=== PATIENT | female | born 1990 | race Caucasian/White ===

== ENCOUNTER 2017-08-21 22:42 | Emergency (ER) | payer OTHER ==
[~2017-08-21] VITALS: Ht 172.7 cm; Wt 68.0 kg
[~2017-08-21 22:42] MED LIST: LEXAPRO10 M1 PO; LIDODERM1 EACH TOP; LORAZEPAM0.5 M1 PO; MIRENA1 EACH; NAPROSYN500 M1 PO; PROAIR HFA8.5 GM INH
[2017-08-21 22:44] VITALS: BP 104/69
--- NOTE | 2017-08-22 00:30 | ED INFLUENZA/URI COMPLAINT ---
History of Present Illness General Chief Complaint: General Adult Stated Complaint: "SINUS PRESSURE, STIFF NECK, N+V-D, DIZZY" Source: patient Exam Limitations: no limitations Vital Signs & Intake/Output Vital Signs & Intake/Output Vital Signs Date Time Temp Pulse Resp B/P B/P Pulse O2 O2 Flow FiO2 Mean Ox Delivery Rate 08/21 2244 96.1 90 20 104/69 98 ED Intake and Output 08/22 0000 08/21 1200 Intake Total Output Total Balance Patient 150 lb Weight Weight Reported by Patient Measurement Method Allergies Coded Allergies: magnesium (Mild, NAUSEA 03/27/17) Triage Note: PT HERE WITH C/O SINUS PAIN/PRESSURE AND NECK PAIN. PT REPROT SINUES STARTED A FEW DAYS AGO AND SHE TOOK SOME [facility]S. PT REPORTS THAT TODAT SHE WOKE UP WITH A "STIFF NECK" AND UNABLE TO MOVE IT. PT REPORTS SHE TOOK TYLENOL WITHOUT EFFECT. Triage Nurses Notes Reviewed? yes Onset: Gradual Duration: constant Timing: recent history Severity: moderate Severity Numbers: 5 : No Patient currently breastfeeds: No HPI: Patient is a 27-year-old female who presents emergency with concerns of a four- day history of nasal congestion and sinus pain however today when patient woke up with stiff and sore neck. Patient took [id number] medications without relief of symptoms denies any fever but does have chills. Denies any sore throat or pain. DOES have a cough Positive sick contacts at home similar symptoms (James Eller) Reconcile Medications Albuterol Sulfate (Proair Hfa) 90 MCG HFA.AER.AD 2 PUF INH AD PRN ASTHMA ( Reported) Azithromycin (Zithromax) 500 MG TABLET 1 TAB PO DAILY SINUSITIS Benzonatate (Tessalon Perle) 100 MG CAPSULE 1 CAP PO TID PRN COUGH Cyclobenzaprine HCl 10 MG TABLET 1 TAB PO QPM PRN MUSCLE RELAXOR Escitalopram Oxalate (Lexapro) 10 MG TABLET 1 TAB PO QPM MENTAL HEALTH ( Reported) Fluticasone Propionate (Flonase Allergy Relief) 50 MCG/ACTUATION SPRAY.SUSP 2 SPRAY MIRIAN DAILY CONGESTION Levonorgestrel (Mirena) 20 MCG/24 HOUR (5 YEARS) IUD CONTROL (Reported) Lidocaine (Lidoderm) 5 % ADH..PATCH 1 PAT TOP DAILY PRN pain may wear up to 12 hours Lorazepam 0.5 MG TABLET 1 TAB PO DAILY NEEDED PRN ANXIETY (Reported) Meloxicam (Mobic) 15 MG TABLET 1 TAB PO DAILY PRN PAIN (Margaux HURD,Rolando Aragon) Past History Travel History Traveled to [place] past 21 day No Medical History Any Pertinent Medical History? 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 No (James Eller) Review of Systems Review of Systems Constitutional: Reports: see HPI, chills. EENTM: Reports: see HPI, nasal congestion. Respiratory: Reports: see HPI, cough. Cardiovascular: Reports: no symptoms. GI: Reports: no symptoms. Genitourinary: Reports: no symptoms. Musculoskeletal: Reports: see HPI, neck pain. Skin: Reports: no symptoms. Neurological/Psychological: Reports: see HPI. Hematologic/Endocrine: Reports: no symptoms. Immunologic/Allergic: Reports: no symptoms. All Other Systems: Reviewed and Negative (James Eller) Physical Exam Physical Exam General Appearance: no apparent distress, alert, comfortable Head: atraumatic Eyes: Bilateral: normal appearance, PERRL, EOMI. Ears, Nose, Throat: moist mucous membrane, hearing grossly normal, Tympanic normal, pharynx normal, nasal congestion, nasal drainage, RIGHT FRONTAL POINT TENDERNESS Neck: limited range of motion, no midline tenderness Respiratory: normal breath sounds, chest non-tender, no respiratory distress Cardiovascular: regular rate/rhythm Gastrointestinal: normal bowel sounds, soft, non-tender Extremities: normal inspection Neurologic/Psych: no motor/sensory deficits, awake, alert, oriented x 3, normal gait, normal mood/affect Skin: intact, normal color, warm/dry Core Measures Sepsis Present: No Sepsis Focused Exam Completed? No (James Eller) Progress Differential Diagnosis: influenza, meningitis, neutropenia, otitis, pneumonia, pharyngitis, sinusitis Plan of Care: No concerns of meningitis at this time patient was afebrile nontoxic-appearing patient patient denies any mechanism of injury discussed with patient that if fever or worsening headache or neck pain occur to return to emergency room and she will comply patient will be treated for concerns of sinusitis. Initial ED EKG: none (James Eller) Departure Departure Disposition: HOME OR SELF CARE Condition: Stable Clinical Impression Primary Impression: Sinusitis Secondary Impressions: Neck pain Referrals: Kehinde HURD,Keturah Reich (PCP/Family) Additional Instructions: As discussed begin the prescription meloxicam for pain and inflammation, BEGIN THE prescription of azithromycin for the full course , TESSALON PERLES for cough and Flonase for congestion. Begin [id number] Sudafed for congestion. If no better in 2 days follow up with your primary care doctor. If symptoms worsen return to emergency room. Prescriptions waiting at [facility] Departure Forms: Customer Survey General Discharge Information Prescriptions: Current Visit Scripts Fluticasone Propionate (Flonase Allergy Relief) 2 SPRAY MIRIAN DAILY #1 BOT Meloxicam (Mobic) 1 TAB PO DAILY PRN PAIN #10 TAB Benzonatate (Tessalon Perle) 1 CAP PO TID PRN COUGH #15 CAP Azithromycin (Zithromax) 1 TAB PO DAILY #5 TAB Cyclobenzaprine HCl 1 TAB PO QPM PRN MUSCLE RELAXOR #5 TAB (James Eller) PA/MOTOR BIKE MECHANIC Co-Sign Statement Statement: ED Attending supervision documentation- [] I saw and evaluated the patient. I have also reviewed all the pertinent lab results and diagnostic results. I agree with the findings and the plan of care as documented in the PA's/MOTOR BIKE MECHANIC's documentation. [x] I have reviewed the ED Record and agree with the PA's/MOTOR BIKE MECHANIC's documentation. [] Additions or exceptions (if any) to the PAs/MOTOR BIKE MECHANIC's note and plan are summarized below: [] (Margaux HURD,Rolando Aragon)
[2017-08-22] MEDS ORDERED: FLONASE ALLERG9.9 ML NAS (00:33)
[2017-08-22] MEDS ORDERED: TESSALON PERLE100 M1 PO (00:33)
[2017-08-22] MEDS ORDERED: ZITHROMAX500 M2 PO (00:33)
[2017-08-22] MEDS ORDERED: MOBIC15 M1 PO (00:33)
[2017-08-22] MEDS ORDERED: CYCLOBENZAPRINE10 M1 PO (00:34)
== END 2017-08-22 00:44 ==
LOC: ERH 22:42
DX: J32.9 Chronic sinusitis, unspecified (principal); M54.2 Cervicalgia

== ENCOUNTER 2017-09-08 23:07 | Inpatient (IN) | payer OTHER ==
[~2017-09-08] VITALS: Ht 175.3 cm; Wt 68.0 kg
[~2017-09-08 23:07] MED LIST changes: +CYCLOBENZAPRINE10 M1 PO; +FLONASE ALLERG9.9 ML NAS; +MOBIC15 M1 PO; +TESSALON PERLE100 M1 PO; +ZITHROMAX500 M2 PO
--- NOTE | 2017-09-08 23:27 | ED PSYCHIATRIC COMPLAINT ---
History of Present Illness General Chief Complaint: Psychiatric Related Complaint Stated Complaint: FEELING SUICIDAL PER [place] [employer] Source: patient Exam Limitations: no limitations Vital Signs & Intake/Output Vital Signs & Intake/Output Vital Signs Date Time Temp Pulse Resp B/P B/P Pulse O2 O2 Flow FiO2 Mean Ox Delivery Rate 09/09 0852 97.9 71 20 99/66 100 Room Air 09/09 0618 98.1 86 16 103/74 98 Room Air 09/09 0200 20 09/08 2322 98.0 80 18 114/75 100 Room Air ED Intake and Output 09/09 0000 09/08 1200 Intake Total 0 Output Total Balance 0 Intake, Oral 0 Patient 150 lb Weight Weight Reported by Patient Measurement Method Allergies Coded Allergies: magnesium (Mild, NAUSEA 03/27/17) Reconcile Medications Albuterol Sulfate (Proair Hfa) 90 MCG HFA.AER.AD 2 PUF INH AD PRN ASTHMA ( Reported) Azithromycin (Zithromax) 500 MG TABLET 1 TAB PO DAILY SINUSITIS Benzonatate (Tessalon Perle) 100 MG CAPSULE 1 CAP PO TID PRN COUGH Cyclobenzaprine HCl 10 MG TABLET 1 TAB PO QPM PRN MUSCLE RELAXOR Escitalopram Oxalate (Lexapro) 10 MG TABLET 1 TAB PO QPM MENTAL HEALTH ( Reported) Fluticasone Propionate (Flonase Allergy Relief) 50 MCG/ACTUATION SPRAY.SUSP 2 SPRAY MIRIAN DAILY CONGESTION Levonorgestrel (Mirena) 20 MCG/24 HOUR (5 YEARS) IUD CONTROL (Reported) Lidocaine (Lidoderm) 5 % ADH..PATCH 1 PAT TOP DAILY PRN pain may wear up to 12 hours Lorazepam 0.5 MG TABLET 1 TAB PO DAILY NEEDED PRN ANXIETY (Reported) Meloxicam (Mobic) 15 MG TABLET 1 TAB PO DAILY PRN PAIN Triage Note: SEE NURSES NOTES Triage Nurses Notes Reviewed? yes Onset: Gradual Duration: week(s): Timing: recent history Severity: moderate : No Patient currently breastfeeds: No HPI: 27yo female with hx of depression, anxety, antisocial personality disorder presents emergency department for suicidal ideation. Patient states that earlier today she was texting the suicidal hotline and making suicidal statements. They sent police to her house based on these statements. Patient states she do not want to go to [employer] so she drove here instead. Patient states she has had suicidal ideation for over a month. She also endorses homicidal ideation which she relates to her. The social personality disorder. Patient is that she has thoughts about harming other people however thinks about other alternatives instead. Patient has been taking her psychiatric medication as prescribed. The patient denies having a suicide plan. She denies alcohol use, drug use, hallucinations. (Brenda Montenegro) Past History Travel History Traveled to [place] past 21 day No Medical History Any Pertinent Medical History? 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 No (Brenda Montenegro) Review of Systems Review of Systems Constitutional: Reports: no symptoms. EENTM: Reports: no symptoms. Respiratory: Reports: no symptoms. Cardiovascular: Reports: no symptoms. GI: Reports: no symptoms. Genitourinary: Reports: no symptoms. Musculoskeletal: Reports: no symptoms. Skin: Reports: no symptoms. Neurological/Psychological: Reports: see HPI. Hematologic/Endocrine: Reports: no symptoms. Immunologic/Allergic: Reports: no symptoms. All Other Systems: Reviewed and Negative (Brenda Montenegro) Physical Exam Physical Exam General Appearance: well developed/nourished, no apparent distress, alert, awake Head: atraumatic, normal appearance Eyes: Bilateral: normal appearance. Ears, Nose, Throat: hearing grossly normal Neck: normal inspection, supple, full range of motion Respiratory: no respiratory distress Extremities: normal range of motion Neurological/Psychiatric: awake, alert, normal mood/affect, calm Appearance/Memory/Insight: appropriate appearance, appropriate insight Behavoir/Eye Contact/Speech: cooperative Thoughts/Hallucinations: normal thought pattern, no apparent hallucination Skin: intact, normal color, warm/dry SAD PERSONS SAD PERSONS Response Value Depression/Hopelessness? yes 2 Single//? yes 1 Social Support? has no support 1 Total 4 SAD PERSONS Done? yes (Brenda Montenegro) Progress Differential Diagnosis: drug intoxication, drug overdose, drug withdrawal, suicidal ideation, depression Plan of Care: Orders Procedure Date/time Status Regular Diet 09/09 B Active ED CRISIS PSYCH CONSULT 09/09 075 Active Continuous Observation Monitor 09/09 324 Active Continuous Observation Monitor 09/08 2325 Active URINE 09/08 2325 Complete URINE DRUG SCREEN FOR ER ONLY 09/08 2325 Complete ETHANOL 09/08 2325 Complete COMPREHENSIVE METABOLIC PANEL 09/08 2325 Complete CBC WITHOUT DIFFERENTIAL 09/08 2325 Complete Current Medications Sig/Darrell Start time Last Medication Dose Stop Time Status Admin Escitalopram Oxalate 10 MG QPM 09/09 2100 UNVr (Lexapro) Albuterol Sulfate 2 PUF .[AD] PRN 09/09 004 UNVr (Ventolin) Laboratory Tests 09/09/17 0013: Urine Opiates Screen < 100, Methadone Screen 47, Barbiturate Screen < 60, Ur Phencyclidine Scrn < 6.00, Amphetamines Screen < 100, U Benzodiazepines Scrn < 85, Urine Cocaine Screen < 50, Urine Cannabis Screen < 5.00, Urine Test NEGATIVE 09/09/17 0010: Anion Gap 10, Estimated GFR > 60, BUN/Creatinine Ratio 15.7, Glucose 103 H, Calcium 9.5, Total Bilirubin 0.8, AST 28, ALT 25, Alkaline Phosphatase 49, Total Protein 7.3, Albumin 4.1, Globulin 3.2, Albumin/Globulin Ratio 1.3, CBC w Diff NO MAN DIFF REQ, RBC 4.40, MCV 87.5, MCH 30.0, MCHC 34.3, RDW 13.1, MPV 8.7, Gran % 61.4, Lymphocytes % 27.7, Monocytes % 7.9, Eosinophils % 2.5, Basophils % 0.5, Absolute Granulocytes 3.9, Absolute Lymphocytes 1.8, Absolute Monocytes 0.5 , Absolute Eosinophils 0.2, Absolute Basophils 0, Serum Alcohol < 10.0 The patient was signed out to Dr. Schuler pending labs and crisis evaluation and disposition. Hand-Off Endorsed To: Russel Schuler MD Endorsed Time: 010 Pending: consult (crisis), labs (Brenda Montenegro) Hand-Off Endorsed To: Kingston Bell DO Endorsed Time: 07 Pending: consult (Russel Schuler MD) Departure Departure Disposition: STILL A PATIENT Condition: Stable Clinical Impression Primary Impression: Suicidal ideation Referrals: Keturah Busby MD (PCP/Family) Departure Forms: Customer Survey General Discharge Information (Destinee ALVARADO,Brenda Harley) PA/RECORDER OF DEEDS Co-Sign Statement Statement: ED Attending supervision documentation- x I saw and evaluated the patient. I have also reviewed all the pertinent lab results and diagnostic results. I agree with the findings and the plan of care as documented in the PA's/RECORDER OF DEEDS's documentation. Personality disorder with SI, HI [] I have reviewed the ED Record and agree with the PA's/RECORDER OF DEEDS's documentation. [] Additions or exceptions (if any) to the PAs/RECORDER OF DEEDS's note and plan are summarized below: [] (Ganga HURD,Russel) Departure Comments 09/09/17 10 AM 27-year-old female. The patient was signed out to me by Dr. Schuler. Patient is pending disposition by crisis. (Kingston Bell DO)
[2017-09-09 00:30] LABS: ABSOLUTE BASOPHIL COUNT 0 /CUMM (0.0-0.2); ABSOLUTE EOSINOPHIL COUNT 0.2 /CUMM (0.0-0.7); ABSOLUTE GRANULOCYTE CT 3.9 /CUMM (1.4-6.5); ABSOLUTE LYMPH COUNT 1.8 /CUMM (1.2-3.4); ABSOLUTE MONOCYTE COUNT 0.5 /CUMM (0.10-0.60); BASOPHIL % 0.5 % (0.0-2.0); EOSINOPHIL % 2.5 % (0-5); GRANULOCYTE % 61.4 % (42.2-75.2); HEMATOCRIT 38.5 % (37-47); MEAN CORPUSCULAR HGB CONC 34.3 G/DL (33.0-37.0); MEAN CORPUSCULAR VOLUME 87.5 FL (81.0-99.0); MEAN PLATELET VOLUME 8.7 FL (7.4-10.4); PLATELET COUNT 262 /CUMM (130-400); RBC DISTRIBUTION WIDTH 13.1 % (11.5-14.5); WHITE BLOOD CELL COUNT 6.4 /CUMM (4.8-10.8)
--- NOTE | 2017-09-09 08:58 | ED PSY CRISIS COLLATERAL NOTE ---
Collateral Note Collateral Note Family/Inform/Joann Contacts: Crisis spoke to pt's boyfriend of six years, Alfonso Hernandez ([phone]). He states that the pt has had intense anxiety over the last month and has been depressed for years. She is currently in IOP @ [facility]. Today is the patient's 3rd visit to an ED in the last 2.5 years. Pt was hospitalized 1.5 years ago @ [facility] for SI. He states that when the pt gets "super depressed" she reaches out. He states she was texting the crisis/suicide hotline because she had a bad day. He is unaware of what he text them. Read to him the PEER from [facility] including how she reported to hotline that she took all of her ativan and her meds. Boyienricardo states she's had the bottle of ten Ativan since early August and believes there was only one left. The only other medication she has is for depression and it's due for a refill so there aren't many left. Per med reconcilation, the other med is lexapro. Boyfriend lives with patient and he believes that the hotline worker was looking out for the pt but overall it was an over reaction. He reports pt often has SI thoughts. He has not known her to ever have a suicide attempt. In regards to the comments she made in triage about hurting others, boyienricardo believes it is realated to trying to emotionally hurt others as she is guarded and does not have a lot of friends. He offers that approximately 2.5 years ago the pt had vertigo and some seizure syndrome. He states that after a lot of specailists no one was able to give her a formal diagnosis. She has been seizure free for 1 year but still has dizzy spells. These medical issues led to them having high medical bills which led to financial stress. Pt also resigned from her job after taking a leave of absense to do IOP at [facility]. This also adds stress to the household. Krisienricardo does not believe inpatient would be helpful to the pt at this time as her last experience at [facility] was so traumatic. He states he thinks the patient is safe to come home. He is not afraid for his safety or her safety. He thinks she can be safe at home and with IOP services at [facility].
--- NOTE | 2017-09-09 09:33 | ED PSYCH CRISIS CONSULTATION ---
Crisis Consult Basic Assessment Date of Consult: 09/09/17 Responsible Person/Accompanied By: self Insurance Authorization: Insurance #1: Insurance name: STUART Melara C&A Phone number: Policy number: [id number] Group number: Authorization number: ED Provider: Patient's ED Provider: Brenda Montenegro Primary Care Physician: Patient's PCP: Keturah Busby MD PCP's Current Psychiatrist: Provider @ [facility] Chief Complaint: Psychiatric Related Complaint Patient's Quote: "I've had depression for a few years" Present Illness: Pt is a 27 year old female self presnting to the ED on [place] [employer] PEER. Police followed pt to ED from [place]. Pt presents to ED last night after she was texting a crisis/suicide hotline. PEER indicates PD was called after pt text that she took all of her Ativan and meds. Pt refused to go to [place] and [facility] [place] [facility] allowed pt to drive her own car to [place] and they followed behind patient. Pt was seen by crisis this morning. Pt's utox is negative and BAL is zero. Pt states she was utilizing the crisis line as she had a terrible day yesterday. She states she took 4 of her Ativan (total of 2mg). Per ED CHRISTIANO Holden, Ativan may not have shown up in her utox if she the collection was close to when she took the Ativan. He informed this process description writer that Ativan will not show up in her urine for 6-8 hours after injestion. He suggested repeating the UDS. Pt states she did not take these 4 Ativan as a means to kill herself. She explained that she was very anxious yesterday because she was at [facility] filing for disability and higginbotham assistance. The pt states this was very stressful and when she got home, EMS was at her home because her roommate reportedly left his therapy session and the therapist was concerns and called for what sounds like a wellness check. Pt' s roommate was found and sent to [place] ED for psych eval. Pt notes these events were overwhelming for her so she took the Ativan to calm down and was texting the crisis hotline. Pt states she has chronic SI and denies any suicide attempts. Pt denies SI/HI at this time. Pt denies AH/VH. Pt is an active pt at [facility] in [place]. She was in the DBT IOP but the pt indicates she they changed the format from 2 therapy group and 1 skills group to 2 skills groups and 1 therapy group. Pt states she doesn't think the skills groups help learning skills to manage care home symptoms but they are helpful in an acute situations. Pt sees a prescriber 1x/month. She states they have had staff changes and are short prescribers. She was supposed to follow up in 2 weeks after the appt on 08/08 when she was 1st prescribed the Ativan. However her next scheduled appointment is 09/13/17. Over the last month, pt reports that her depression and anxiety have gotten worse. She has difficulty staying asleep at night- sometimes as nightmares about YPI. She reports decreased apetite with no noticeable weight loss. Pt took a leave of absense form her job to do IOP but recently resigned from her position. Pt does not believe there is a purpose to going inpatient stating that nothing will change and if she misses the the [facility] appointment on 09/13 she will have to wait even longer to see her regular provider. Pt wants to discharge home w/ follow up with [facility] IOP on 09/12/17 and med appointment on 09/13/17. Crisis spoke to therapist, Macrina, at [facility]. She confirms that the pt is an active pt at [facility]. She was in the DBT IOP but will be switching to the Symptom Managment IOP starting Tuesday. She states patient does have long standing depression with chronic SI and has self diagnosed herself with Antisocial Personality Disorder. She does not believe that the pt has antisocial personality disorder. Therapist thinks she is guarded around people based on her childhood which she did not disclose the details of. She does think the pt is hopeless. Of note, the pt was hospitalized at [place] 02/2016 for what [facility] states was a suicide attempt by overdose. It was reported to [facility] that pt locked herself in a room at home and wouldn't open the door and stated she took pills. It is unclear what pills she injested but there was a subsequent inpatient psych hospitalization follwing this event. She reports she is on the fence about the appropriate level of care for the patient. She consulted with [facility] Crisis and the Senior Ux Designer. She states they are now advocating for an admissions. The crisis team has spent approx 15 hours with pt this week alone. Pt is decompensating in their opinion. They noted that in their records from initial intake on 07/14/16 that pt reported two previous suicide attempts in the past by overdose. Pt also reported at the [facility] intake in response to a question about how would you respond to going to the ED if needed for eval "I would manipulate them to get my way out." Crisis consulted with Dr. Reis, financial consultant psychiatrist. Pt to be PEC'd for inpatient psych treatment due to reporting to suicide hotline she took all her ativan, has previous suicide attempts by overdose. Pt is hopeless and helpless believing nothing can help her. Of note, when patient was informed that she would be involuntarily committed to CPS, it was explained to her that she can file for probable cause. She requested to do so when she was admitted. Dr. Reis and legal director notified. Patient's Address: [address] [place] [address] Other Phone Number: Who Do You Live With? Significant Other (& Roommate) Family/Informants Interviewed: Spoke with boyfriend, Alfonso and [facility]. See seperate col. notes Allergies - Coded Allergies: magnesium (Mild, NAUSEA 03/27/17) Current Medications - Scheduled Medications Azithromycin (Zithromax) 500 MG TABLET 1 TAB PO DAILY SINUSITIS #5 TAB Prescribed by James Bruner on 08/22/17 Escitalopram Oxalate (Lexapro) 10 MG TABLET 1 TAB PO QPM MENTAL HEALTH #30 ( Reported) Entered as Reported by Kendal Rojas on 08/13/17 1506 Fluticasone Propionate (Flonase Allergy Relief) 50 MCG/ACTUATION SPRAY.SUSP 2 SPRAY MIRIAN DAILY CONGESTION #1 BOT Prescribed by James Bruner on 08/22/17 Scheduled PRN Medications Albuterol Sulfate (Proair Hfa) 90 MCG HFA.AER.AD 2 PUF INH AD PRN ASTHMA #9 ( Reported) Entered as Reported by Kendal Rojas on 08/13/17 1506 Benzonatate (Tessalon Perle) 100 MG CAPSULE 1 CAP PO TID PRN COUGH #15 CAP Prescribed by James Bruner on 08/22/17 Cyclobenzaprine HCl 10 MG TABLET 1 TAB PO QPM PRN MUSCLE RELAXOR #5 TAB Prescribed by James Bruner on 08/22/17 Lidocaine (Lidoderm) 5 % ADH..PATCH 1 PAT TOP DAILY PRN pain #30 PAT Prescribed by Sugar Lynch on 03/27/17 Lorazepam 0.5 MG TABLET 1 TAB PO DAILY NEEDED PRN ANXIETY #10 (Reported) Entered as Reported by Kendal Rojas on 08/13/17 1506 Meloxicam (Mobic) 15 MG TABLET 1 TAB PO DAILY PRN PAIN #10 TAB Prescribed by James Bruner on 08/22/17 Miscellaneous Medications Levonorgestrel (Mirena) 20 MCG/24 HOUR (5 YEARS) IUD CONTROL (Reported) Entered as Reported by Kendal Rojas on 08/13/17 1507 Laboratory Results: Laboratory Tests 09/09/17 0013: Urine Opiates Screen < 100, Methadone Screen 47, Barbiturate Screen < 60, Ur Phencyclidine Scrn < 6.00, Amphetamines Screen < 100, U Benzodiazepines Scrn < 85, Urine Cocaine Screen < 50, Urine Cannabis Screen < 5.00, Urine Test NEGATIVE 09/09/17 0010: Anion Gap 10, Estimated GFR > 60, BUN/Creatinine Ratio 15.7, Glucose 103 H, Calcium 9.5, Total Bilirubin 0.8, AST 28, ALT 25, Alkaline Phosphatase 49, Total Protein 7.3, Albumin 4.1, Globulin 3.2, Albumin/Globulin Ratio 1.3, CBC w Diff NO MAN DIFF REQ, RBC 4.40, MCV 87.5, MCH 30.0, MCHC 34.3, RDW 13.1, MPV 8.7, Gran % 61.4, Lymphocytes % 27.7, Monocytes % 7.9, Eosinophils % 2.5, Basophils % 0.5, Absolute Granulocytes 3.9, Absolute Lymphocytes 1.8, Absolute Monocytes 0.5 , Absolute Eosinophils 0.2, Absolute Basophils 0, Serum Alcohol < 10.0 Past History Past Medical History Neurological: seizure (hx of seizures), vertigo EENT: NONE Cardiovascular: NONE Respiratory: asthma Renal: NONE Musculoskeletal: NONE Psychiatric: anxiety, depression Endocrine: NONE Blood Disorders: NONE Cancer(s): NONE SITE SURVEYOR/Reproductive: NONE Past Surgical History Surgical History: non-contributory Psychosocial History Strengths/Capabilities: Active Care pt, currently in IOP Reaches out for help when needed Supportive boyfriend Physical Limitations (Interventions): Pt has vertigo Psychiatric Treatment History Psych Treatment Psychiatric Treatment Yes Inpatient Treatment Yes Outpatient Treatment Yes Location of Treatment IP- [facility], OP- Care Reason for Treatment SI Depression Anxiety Dates of Treatment current @ [facility], IP- 02/2016 Response to Treatment pt reports nothing helps Diagnosis by History: Depression Anxiety Pt self diagnosed herself w/ Antisocial Personality Disorder Substance Use/Abuse History Drug Use/Abuse Substances Used/Abused Yes Substance Used/Abused Benzodiazepines First Use 08/08/17 Last Used 09/08/17 How much used/taken pt was prescribed 0.5 mg daily, states she took 4 last night How often see above For how long 1 month Route of use po Substance Abuse Treatment Substance Abuse Treatment Past Substance Abuse [place] No Current Mental Status Mental Status Orientation: Person, Place, Situation Affect: Appropriate, Sad Speech: Normal Neuro-vegetative: Appetite Decreased, Energy Decreased, Helpless, Hypersomnia, Sleep Disturbance Appearance Appearance- Dress/Hygiene: Pt presents in hospital attire with blanket on laying in bed. No remarkable features noted. Behaviors Thought Process: Logical/Rational Thought Content: WNL Memory: WNL Insight: Fair SI/HI Risk Assessment Past Suicidal Ideation/Attempts Yes Current Suicidal Ideation/Att No Past Homicidal Ideation/Att: No Current Homicidal Ideation/Attempts No Degree of Intent: Thoughts/No Intent Danger To: Self Gravely Disabled: Poor Impulse Control Risk Factors: high anxiety/distress, history of suicide atmpts, SA/MH hospitalized, poor impulse control, limited support Lethality Ratin PTSD Checklist PTSD Done? 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 F41.1 Generalized Anxiety Disorder Cluster B traits Stressors: Unemployed, financial, limited support Medical- vertigo, hx of seizures- last seizure 1 year ago- no formal dx given Current GAF: 30 Departure Disposition Psych Medical Clearance Date: 09/09/17 Medically Cleared at: 0830 Time Started: 0830 Time Ended: 09 Psychiatrist Consulted: Zigun MD,Rolando Date Disposition Established: 09/09/17 Time Disposition Established: 1130 Plan for Disposition - Modality: Inpatient Psychiatry Facility: [facility] Rationale for Disposition: Pt to ED on PEER following texting suicide hotline/crisis line that she took all of her ativan and all her meds. Pt denies this was a SA by overdose. Pt does have history of 2 previous SA by overdose. Pt has told her current providers that she would manipulate hospital staff in order to get out of the hospital so she can leave to kill herself. Current provider's believe that she is failed at their highest level of care they can provide- DBT IOP. Type of IP Admission: PEC Referrals Kehinde HURD,Keturah Reich (PCP/Family)
--- NOTE | 2017-09-09 13:33 | IP CRISIS DIAG ASSESS PSYCH ---
Patricia Andino 09/09/17 1332: Diagnostic Assessment Basic Assessment Insurance Authorization: Insurance #1: Insurance name: STUART Melara C&A Phone number: Policy number: [id number] Group number: Authorization number: Primary Care Physician: Patient's PCP: Keturah Busby MD PCP's Patient's Quote: "I've had depression for a few years" Present Illness: Pt is a 27 year old female self presnting to the ED on [place] [employer] PEER. Police followed pt to ED from [place]. Pt presents to ED last night after she was texting a crisis/suicide hotline. PEER indicates PD was called after pt text that she took all of her Ativan and meds. Pt refused to go to [place] and [facility] [place] [facility] allowed pt to drive her own car to [place] and they followed behind patient. Pt was seen by crisis this morning. Pt's utox is negative and BAL is zero. Pt states she was utilizing the crisis line as she had a terrible day yesterday. She states she took 4 of her Ativan (total of 2mg). Per ED CHRISTIANO Holden, Ativan may not have shown up in her utox if she the collection was close to when she took the Ativan. He informed this feature writer that Ativan will not show up in her urine for 6-8 hours after injestion. He suggested repeating the UDS. Pt states she did not take these 4 Ativan as a means to kill herself. She explained that she was very anxious yesterday because she was at [facility] filing for disability and higginbotham assistance. The pt states this was very stressful and when she got home, EMS was at her home because her roommate reportedly left his therapy session and the therapist was concerns and called for what sounds like a wellness check. Pt' s roommate was found and sent to [place] ED for psych eval. Pt notes these events were overwhelming for her so she took the Ativan to calm down and was texting the crisis hotline. Pt states she has chronic SI and denies any suicide attempts. Pt denies SI/HI at this time. Pt denies AH/VH. Pt is an active pt at [facility] in [place]. She was in the DBT IOP but the pt indicates she they changed the format from 2 therapy group and 1 skills group to 2 skills groups and 1 therapy group. Pt states she doesn't think the skills groups help learning skills to manage detention symptoms but they are helpful in an acute situations. Pt sees a prescriber 1x/month. She states they have had staff changes and are short prescribers. She was supposed to follow up in 2 weeks after the appt on 08/08 when she was 1st prescribed the Ativan. However her next scheduled appointment is 09/13/17. Over the last month, pt reports that her depression and anxiety have gotten worse. She has difficulty staying asleep at night- sometimes as nightmares about YPI. She reports decreased apetite with no noticeable weight loss. Pt took a leave of absense form her job to do IOP but recently resigned from her position. Pt does not believe there is a purpose to going inpatient stating that nothing will change and if she misses the the [facility] appointment on 09/13 she will have to wait even longer to see her regular provider. Pt wants to discharge home w/ follow up with [facility] IOP on 09/12/17 and med appointment on 09/13/17. Crisis spoke to therapist, Macrina, at [facility]. She confirms that the pt is an active pt at [facility]. She was in the DBT IOP but will be switching to the Symptom Managment IOP starting Tuesday. She states patient does have long standing depression with chronic SI and has self diagnosed herself with Antisocial Personality Disorder. She does not believe that the pt has antisocial personality disorder. Therapist thinks she is guarded around people based on her childhood which she did not disclose the details of. She does think the pt is hopeless. Of note, the pt was hospitalized at [place] 02/2016 for what [facility] states was a suicide attempt by overdose. It was reported to [facility] that pt locked herself in a room at home and wouldn't open the door and stated she took pills. It is unclear what pills she injested but there was a subsequent inpatient psych hospitalization follwing this event. She reports she is on the fence about the appropriate level of care for the patient. She consulted with [facility] Crisis and the Breaker Up Machine Operator. She states they are now advocating for an admissions. The crisis team has spent approx 15 hours with pt this week alone. Pt is decompensating in their opinion. They noted that in their records from initial intake on 07/14/16 that pt reported two previous suicide attempts in the past by overdose. Pt also reported at the Care intake in response to a question about how would you respond to going to the ED if needed for eval "I would manipulate them to get my way out." Crisis consulted with Dr. Reis, bronzer psychiatrist. Pt to be PEC'd for inpatient psych treatment due to reporting to suicide hotline she took all her ativan, has previous suicide attempts by overdose. Pt is hopeless and helpless believing nothing can help her. Of note, when patient was informed that she would be involuntarily committed to CPS, it was explained to her that she can file for probable cause. She requested to do so when she was admitted. Dr. Reis and interventional radiology technologist notified. Patient's Address: [address] [place] [address] Other Phone Number: Who Do You Live With? Significant Other (& Roommate) Feel Safe Where You Live? Yes Feel Safe in Your Relationship Yes Primary Language? Wolof Language(s) Spoken At Home: Wolof Family/Informants Interviewed: Spoke with boyfriend, Alfonso and [facility]. See seperate col. notes Allergies - Coded Allergies: magnesium (Mild, NAUSEA 03/27/17) Current Medications - Scheduled Medications Azithromycin (Zithromax) 500 MG TABLET 1 TAB PO DAILY SINUSITIS #5 TAB Prescribed by James Bruner on 08/22/17 Escitalopram Oxalate (Lexapro) 10 MG TABLET 1 TAB PO QPM MENTAL HEALTH #30 ( Reported) Entered as Reported by Kendal Rojas on 08/13/17 1506 Fluticasone Propionate (Flonase Allergy Relief) 50 MCG/ACTUATION SPRAY.SUSP 2 SPRAY MIRIAN DAILY CONGESTION #1 BOT Prescribed by James Bruner on 08/22/17 Scheduled PRN Medications Albuterol Sulfate (Proair Hfa) 90 MCG HFA.AER.AD 2 PUF INH AD PRN ASTHMA #9 ( Reported) Entered as Reported by Kendal Rojas on 08/13/17 1506 Benzonatate (Tessalon Perle) 100 MG CAPSULE 1 CAP PO TID PRN COUGH #15 CAP Prescribed by James Bruner on 08/22/17 Cyclobenzaprine HCl 10 MG TABLET 1 TAB PO QPM PRN MUSCLE RELAXOR #5 TAB Prescribed by James Bruner on 08/22/17 Lidocaine (Lidoderm) 5 % ADH..PATCH 1 PAT TOP DAILY PRN pain #30 PAT Prescribed by Sugar Lynch on 03/27/17 Lorazepam 0.5 MG TABLET 1 TAB PO DAILY NEEDED PRN ANXIETY #10 (Reported) Entered as Reported by Kendal Rojas on 08/13/17 1506 Meloxicam (Mobic) 15 MG TABLET 1 TAB PO DAILY PRN PAIN #10 TAB Prescribed by James Bruner on 08/22/17 Miscellaneous Medications Levonorgestrel (Mirena) 20 MCG/24 HOUR (5 YEARS) IUD CONTROL (Reported) Entered as Reported by Kendal Rojas on 08/13/17 1507 Lab Results: Laboratory Tests 09/09/17 1117: Urine Opiates Screen < 100, Methadone Screen 46, Barbiturate Screen < 60, Ur Phencyclidine Scrn < 6.00, Amphetamines Screen < 100, U Benzodiazepines Scrn < 85, Urine Cocaine Screen < 50, Urine Cannabis Screen < 5.00 09/09/17 0013: Urine Opiates Screen < 100, Methadone Screen 47, Barbiturate Screen < 60, Ur Phencyclidine Scrn < 6.00, Amphetamines Screen < 100, U Benzodiazepines Scrn < 85, Urine Cocaine Screen < 50, Urine Cannabis Screen < 5.00, Urine Test NEGATIVE 09/09/17 0010: Anion Gap 10, Estimated GFR > 60, BUN/Creatinine Ratio 15.7, Glucose 103 H, Calcium 9.5, Total Bilirubin 0.8, AST 28, ALT 25, Alkaline Phosphatase 49, Total Protein 7.3, Albumin 4.1, Globulin 3.2, Albumin/Globulin Ratio 1.3, TSH &T3 & Free T4 Intrp 2.530, CBC w Diff NO MAN DIFF REQ, RBC 4.40, MCV 87.5, MCH 30.0, MCHC 34.3, RDW 13.1, MPV 8.7, Gran % 61.4, Lymphocytes % 27.7, Monocytes % 7.9, Eosinophils % 2.5, Basophils % 0.5, Absolute Granulocytes 3.9, Absolute Lymphocytes 1.8, Absolute Monocytes 0.5, Absolute Eosinophils 0.2, Absolute Basophils 0, Serum Alcohol < 10.0 Toxicology Screen Completed? Yes Results: negative Symptoms of Use: n/a Past History Abuse/Trauma History Trauma History/Current Trauma: unk Psychosocial History Strengths/Capabilities: Active Care pt, currently in IOP Reaches out for help when needed Supportive boyfriend Physical Limitations (Interventions): Pt has vertigo Psychiatric Treatment History Psych Treatment Psychiatric Treatment Yes Inpatient Treatment Yes Outpatient Treatment Yes Location of Treatment [facility]- [facility], OP- Care Reason for Treatment SI Depression Anxiety Dates of Treatment current @ [facility], IP- 02/2016 Response to Treatment pt reports nothing helps Diagnosis by History: Depression Anxiety Pt self diagnosed herself w/ Antisocial Personality Disorder Risk Factors: high anxiety/distress, history of suicide atmpts, SA/MH hospitalized, poor impulse control, limited support Substance Use/Abuse History Drug Use/Abuse minimum 12mo Hx Substances Used/Abused Yes Substance Used/Abused Benzodiazepines First Use 08/08/17 Last Used 09/08/17 How much used/taken pt was prescribed 0.5 mg daily, states she took 4 last night How often see above For how long 1 month Route of use po Substance Abuse Treatment Substance Abuse Treatment Past Substance Abuse [place] No Education History Preferred Learning Style: visual, auditory, experiential Current Mental Status Mental Status Orientation: Person, Place, Situation Affect: Appropriate, Sad Speech: Normal Neuro-vegetative: Appetite Decreased, Energy Decreased, Helpless, Hypersomnia, Sleep Disturbance Appearance Appearance- Dress/Hygiene: Pt presents in hospital attire with blanket on laying in bed. No remarkable features noted. Behaviors Thought Process: Logical/Rational Thought Content: WNL Memory: WNL Insight: Fair SI/HI Risk Assessment - Minimum 6mo History- Past Suicidal Ideation/Attempts Yes Current Suicidal Ideation/Att No Past Homicidal Ideation/Att: No Current Homicidal Ideation/Attempts No Degree of Intent: Thoughts/No Intent Danger To: Self Gravely Disabled: Poor Impulse Control Risk Factors: high anxiety/distress, history of suicide atmpts, SA/MH hospitalized, poor impulse control, limited support Lethality Ratin Needs/Init TX Plan/Goals: Psychiatric Evaluation Medication Evaluation Comphrensive Psychosocial Assessment Individual Therapy Group Therapy Family mtg AUDIT-C Questionnaire: AUDIT-C Questionnaire: Response Value ETOH use in the past year Never 0 # drinks typical/day Doesn't Drink 0 6 or > drinks per occasion Never 0 Total 0 DSM5/PS Stressors/Medical Prob Diagnosis' (DSM 5, Stressors, Medical): 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 Missing pieces include, Children, trauma history, legal history, sexual history, education history. Zay Barger 09/09/17 1508: Addendum Addendum Pt stuart auth for 3 days: [id number] Current Mental Status SI/HI Risk Assessment - Minimum 6mo History-
--- NOTE | 2017-09-09 13:41 | CPS PROVIDER INIT ASMT PSYCH ---
Psychiatric Admission Doctor Assistant's Note Reviewed: Yes Patient Seen and Examined: Yes Identifying Information: 27-year-old single White female Chief Complaint: The patient reportedly texted crisis/suicide hotline saying that she took all her Ativan, the hotline called the police department. It turned out that she only tok 4 pills of the 0.5 mg tabs (she said to calm herself down not to kill self) Reaction to Hospitalization: PEC/involuntary admission History of Present Illness Onset of Illness: As per Vickie Fragoso LCSW's notes of 09/09/17: "Pt is a 27 year old female self presnting to the ED on [place] [employer] PEER. Police followed pt to ED from [place]. Pt presents to ED last night after she was texting a crisis/suicide hotline. PEER indicates PD was called after pt text that she took all of her Ativan and meds. Pt refused to go to [place] and [facility] [place] [facility] pt to drive her own car to [place] and they followed behind patient. Pt's utox is negative and BAL is zero. Pt states she was utilizing the crisis line as she had a terrible day yesterday. She states she took 4 of her Ativan (total of 2mg). Per ED CHRISTIANO Holden, Ativan may not have shown up in her utox if she the collection was close to when she took the Ativan. Pt states she did not take these 4 Ativan as a means to kill herself. She explained that she was very anxious yesterday because she was at [facility] filing for disability and [place] assistance. The pt states this was very stressful and when she got home, EMS was at her home because her roommate reportedly left his therapy session and the therapist was concerns and called for what sounds like a wellness check. Pt's roommate was found and sent to [place] ED for psych eval. Pt notes these events were overwhelming for her so she took the Ativan to calm down and was texting the crisis hotline. Pt states she has chronic SI and denies any suicide attempts. Pt denies SI/HI at this time." Circumstances Leading to Admission: see above Problem(s) Justifying Need for Admission: see above Past Psychiatric History Past Diagnosis(es)- if any: As per Vickie Fragoso LCSW's notes of 09/09/17: "Depression, Anxiety; Pt self diagnosed herself w/ Antisocial Personality Disorder" Past Precipitating Factors- if any: As per Vickie Fragoso LCSW's notes of 09/09/17: "spoke to pt's boyfriend of six years, Alfonso Hernandez ([phone]). He states that the pt has had intense anxiety over the last month and has been depressed for years. She is currently in [facility] Care." - Include inpatient and outpatient treatment Treatment History: She is currently in [facility] Care. Today is the patient's 3rd visit to an ED in the last 2.5 years. Pt was hospitalized 1.5 years ago @ [facility] for SI. History of Suicide Attempts or Gestures the pt was hospitalized at [place] 02/2016 for what [facility] states was a suicide attempt by overdose. Patient denied suicide attempts (? her reliability) Substance Abuse History: None by history. She took more Ativan than prescribed the night prior to coming to ED (only 2 mg total) Allergies: Coded Allergies: magnesium (Mild, NAUSEA 03/27/17) Home Med List: Escitalopram Oxalate (Lexapro) 10 MG TABLET 1 TAB PO QPM MENTAL HEALTH #30 ( Reported) Albuterol Sulfate (Proair Hfa) 90 MCG HFA.AER.AD 2 PUF INH AD PRN ASTHMA Lorazepam 0.5 MG TABLET 1 TAB PO DAILY NEEDED PRN ANXIETY #10 (Repo Meloxicam (Mobic) 15 MG TABLET 1 TAB PO DAILY PRN PAIN - Include any medical condition(s) that may - impact the patient's recovery/remission Past Medical History: History of having a seizure (??) not a seizure disorder Past History Medical History Neurological: seizure (hx of seizures), vertigo EENT: NONE Cardiovascular: NONE Respiratory: asthma Renal: NONE Musculoskeletal: NONE Psychiatric: anxiety, depression Endocrine: NONE Blood Disorders: NONE Cancer(s): NONE 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 Knee and left ankle Psychiatric Family/Social Hx Family History Psychiatric Illness: The patient reported that her mother suffers from anxiety. She also reported that her mother's father (maternal grandfather) committed suicide Substance Use: The patient's father was an alcoholic. He is currently in recovery. The patient also reported that his maternal grandfather who committed suicide was also an alcoholic. Suicides: Patient's maternal grandfather committed suicide no other completed suicides in the family Social History Living Situation: Pt. lives with boyfriend and a male roommate Significant Relationships (family/friends): Boyfriend, parents, a 9-year-old brother Education: Patient reported that she did some college Vocation/Occupation: Patient reported that she is unemployed, she filed for disability Legal: Patient denied any legal entanglements (present or past). Healthly Behaviors Screening Tobacco Screening Tobacco Use from ED Docu: Never used - If tobacco counseling indicated - the following topics are required. - #1 Recognizing dangerous situations. - #2 Coping Skills. - #3 Basic information about quitting. Status of Tobacco Cessation Counseling: Not Applicable Cessation Med Status Not Applicable Alcohol Screening - ETOH screen POS if BAL >=80 or Audit-C>= M4/F3 Audit-C Score from Diag Assess: 0 Blood Alcohol Level: Laboratory Tests 09/09 0010 Toxicology Serum Alcohol (<10 MG/DL) < 10.0 Alcohol Use Screening Results: Neg per Audit C &/or BAL - If ETOH counseling indicated - the following topics are required. - #1 Express concern about the patient's - drinking at unhealthy levels, include informing - of national norms for moderate drinking: - men <= 14 drinks/week, max 4 drinks/occasion - women <= 7 drinks/week, max 3 drinks/occasion - #2 Providing feedback, including linking alcohol to - negative physical effects (liver injury, hypertension) - negative emotional effects (relationship problems and - depression) - negative occupational consequences (reduced work - performance) - #3 Advising the patient to abstain from alcohol or - to drink below national norms for moderate drinking - (as listed above). Status of ETOH Use Counseling: N/A B/C NO ETOH Use Metabolic Screening - Screen if on a Neuroleptic Medication - Metabolic screening should include: - Blood Pressure, BMI, Glucose or Hgb A1c, & a - Lipid profile from within the past 365 days. Metabolic Screening Not Applicable, patient not on a neuroleptic. Exam and Plan Mental Status Examination Ambulation Status: Steady gait. Appearance: Unremarkable. Attitude towards examiner: Patient was crying throughout the interview, she wants to go home, and she does not believe that she belongs in the inpatient psychiatric unit. The patient was interviewed in the crisis evaluation room #15 in the emergency department. Psychomotor activity: Normal psychomotor activity. Behavior: Crying nonstop Quality of speech: Normal speech, not pressured, not slurred. Affect: Tearful throughout the interview Mood: Has been depressed and remains very depressed Suicidal Ideation: She reported that she only took for tablets of Ativan which totaled up to 2 mg because she wanted to calm down and she had no intention of killing herself. The patient denies that she has having any current thoughts of suicide and wants to go home Homicidal Ideation: Denied violent thoughts or homicidal ideation. She keeps describing herself as antisocial and when asked if she meant social anxiety she said no that when she has to be around people she has feelings of wanting to hurt them. She denied any intentions of wanting to hurt anybody at the moment. Hallucinations: She denied hallucinations. Paranoid/Delusional Material: She denied feeling paranoid, there were no delusions during the interview. Difficulties with thought organization: Patient was coherent, no thought disorder. Insight: Poor insight Judgment: Questionable judgment. Orientation: She was alert and oriented to time, place, and person. Cognition: She did not have difficulties with information processing. Memory Function: Patient did not seem to have any gross impairments in short-term memory. Estimate of intellectual functioning: Average Assets/Strengths Patient Identified Assets/Strengths: Patient has social supports, she is well connected with [facility], she is physically healthy. Impression/Plan Impression and Plan: 27-year-old single white female admitted on a PEC after she was brought to the emergency room on a police emergency examination request. The police were called after the patient reportedly texted the crisis hotline/suicide hotline stating that she took all her Ativan (it turned out that it was only 4 tablets of Ativan). The patient is very distraught about being admitted does not feel that is going to be helpful and that is going to make her worse. The patient reported that she had no intention of killing herself when she took Ativan and just wanted to calm down. She is currently denying thoughts of suicide but did seem that she is bargaining to be released. - Include all active medical diagnosis that require tx DSM 5 Diagnosis(es): Unspecified depressive disorder Rule out disruptive mood dysregulation disorder Unspecified anxiety Disorder (most likely a combination of social anxiety and generalized anxiety Cluster B traits - Initial Tx Plan for Active Psych & Medical Conditions Treatment Plan: Inpatient psychiatric care with safety checks every 15 minutes Nursing assessments, vital signs, and patient education and Group therapy, milieu therapy, and activities therapy Collateral information, biopsychosocial assessment by social work and aftercare planning in Increase Lexapro to 20 mg mg daily PRN's of Ativan for anxiety at 1 mg and for insomnia at 2 mg - Factors that would help patient function - in a less restrictive setting. Factors: Patient will be discharged once she has 2 consecutive days without any thoughts of suicide.
[2017-09-09 14:59] VITALS: BP 105/55
--- NOTE | 2017-09-09 15:28 | History & Physical ---
General Information and HPI MD Statement: I have seen and personally examined IFRAH HUBBARD and documented this H& P. The patient is a 27 year old F who presented with a patient stated chief complaint of anxiety and depression Source of Information: patient Exam Limitations: no limitations History of Present Illness: 27-year-old female with past medical history significant for chronic vertigo not on any medications, anxiety, depression is admitted to [facility] because she got into fights with the suicide hotline. Patient states that she was having a bad day yesterday. She got a suicide hotline because she was having suicidal thoughts. She did not have a plan. She often has suicidal thoughts but did not have a plan. She only attempted to hurt herself 2 years ago when she was admitted to the psychiatric unit. Because of this fight for the suicide hotline, she was brought in the emergency room by the police. She does mention feeling stressed out more depressed and anxious. She denies any aches or pains, shortness of breath, nausea, vomiting, diarrhea, spitting, fevers, chills, urinary complaints. Allergies/Medications Allergies: Coded Allergies: magnesium (Mild, NAUSEA 03/27/17) Home Med list Albuterol Sulfate (Proair Hfa) 90 MCG HFA.AER.AD 2 PUF INH AD PRN ASTHMA ( Reported) Azithromycin (Zithromax) 500 MG TABLET 1 TAB PO DAILY SINUSITIS Benzonatate (Tessalon Perle) 100 MG CAPSULE 1 CAP PO TID PRN COUGH Cyclobenzaprine HCl 10 MG TABLET 1 TAB PO QPM PRN MUSCLE RELAXOR Escitalopram Oxalate (Lexapro) 10 MG TABLET 1 TAB PO QPM MENTAL HEALTH ( Reported) Fluticasone Propionate (Flonase Allergy Relief) 50 MCG/ACTUATION SPRAY.SUSP 2 SPRAY MIRIAN DAILY CONGESTION Levonorgestrel (Mirena) 20 MCG/24 HOUR (5 YEARS) IUD CONTROL (Reported) Lidocaine (Lidoderm) 5 % ADH..PATCH 1 PAT TOP DAILY PRN pain may wear up to 12 hours Lorazepam 0.5 MG TABLET 1 TAB PO DAILY NEEDED PRN ANXIETY (Reported) Meloxicam (Mobic) 15 MG TABLET 1 TAB PO DAILY PRN PAIN Past History Travel History Traveled to [place] past 21 day No Medical History Neurological: seizure (hx of seizures), vertigo EENT: NONE Cardiovascular: NONE Respiratory: asthma Musculoskeletal: NONE Psychiatric: anxiety, depression Endocrine: NONE Blood Disorders: NONE Cancer(s): NONE 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 EENTM: Reports: see HPI. Cardiovascular: Reports: see HPI. Respiratory: Reports: see HPI. GI: Reports: see HPI. Musculoskeletal: Reports: see HPI. Skin: Reports: see HPI. Neurological/Psychological: Reports: see HPI. Exam & Diagnostic Data Last 24 Hrs of Vital Signs/I&O Vital Signs Date Time Temp Pulse Resp B/P B/P Pulse O2 O2 Flow FiO2 Mean Ox Delivery Rate 09/09 1459 98.2 84 105/55 09/09 1354 98.2 112 20 122/82 97 Room Air 09/09 1121 99.4 83 20 99/56 99 Room Air 09/09 0852 97.9 71 20 99/66 100 Room Air 09/09 0618 98.1 86 16 103/74 98 Room Air 09/09 0200 20 09/08 2322 98.0 80 18 114/75 100 Room Air Intake & Output 09/09 1600 09/09 0800 09/09 0000 Intake Total 0 Output Total Balance 0 Intake, Oral 0 Patient 150 lb 150 lb Weight Weight Reported by Patient Measurement Method Physical Exam General Appearance Alert, Oriented X3, Cooperative Skin No Rashes HEENT PERRLA Neck Supple Cardiovascular Regular Rate, Normal S1, Normal S2 Lungs Clear to Auscultation Abdomen Normal Bowel Sounds, Soft, No Tenderness Neurological Cranial Nerves II through XII: Intact Extremities No Clubbing Last 24 Hrs of Labs/Nacho: Laboratory Tests 09/09/17 1117: Urine Opiates Screen < 100, Methadone Screen 46, Barbiturate Screen < 60, Ur Phencyclidine Scrn < 6.00, Amphetamines Screen < 100, U Benzodiazepines Scrn < 85, Urine Cocaine Screen < 50, Urine Cannabis Screen < 5.00 09/09/17 0013: Urine Opiates Screen < 100, Methadone Screen 47, Barbiturate Screen < 60, Ur Phencyclidine Scrn < 6.00, Amphetamines Screen < 100, U Benzodiazepines Scrn < 85, Urine Cocaine Screen < 50, Urine Cannabis Screen < 5.00, Urine Test NEGATIVE 09/09/17 0010: Anion Gap 10, Estimated GFR > 60, BUN/Creatinine Ratio 15.7, Glucose 103 H, Calcium 9.5, Total Bilirubin 0.8, AST 28, ALT 25, Alkaline Phosphatase 49, Total Protein 7.3, Albumin 4.1, Globulin 3.2, Albumin/Globulin Ratio 1.3, TSH &T3 & Free T4 Intrp 2.530, CBC w Diff NO MAN DIFF REQ, RBC 4.40, MCV 87.5, MCH 30.0, MCHC 34.3, RDW 13.1, MPV 8.7, Gran % 61.4, Lymphocytes % 27.7, Monocytes % 7.9, Eosinophils % 2.5, Basophils % 0.5, Absolute Granulocytes 3.9, Absolute Lymphocytes 1.8, Absolute Monocytes 0.5, Absolute Eosinophils 0.2, Absolute Basophils 0, Serum Alcohol < 10.0 Assessment/Plan Assessment: 27-year-old female with past history significant for chronic vertigo, anxiety, depression admitted to [facility] with suicidal ideation, worsening depression and worsening daily. Her vital signs are stable. I have reviewed her blood work. That looks pretty stable. Patient states that she does not need any medications for vertigo. For the psych management will be per the psychiatry. As Ranked By This Provider Problem List: 1. Suicidal ideation 2. Anxiety 3. Depression 4. Chronic vertigo Miscellaneous Miscellaneous Documentation Attending Case Discussed With: Dulce Maria Spencer MD Primary Care Physician: Keturah Busby MD Patient sees these Specialists Unkown Level of Patient Care: [facility]
[2017-09-09 19:49] VITALS: BP 118/70
[2017-09-10 07:49] VITALS: BP 117/60
--- NOTE | 2017-09-10 12:43 | CP SOUTH PROGRESS NOTE PSYCH ---
Psych (Inpt) Progress Note Progress Note Pt notes that she is very "pissed off" because she is inpatient. Recounted events leading up to hospitalization and why these events were concerning enough that she was hospitalized. She notes that "thats just the way I am." She notes that she feels that she does not need to be an inpatient. She spoke a length about having "antisocial personality disorder which means that I cannot be around people." She denies SI or HI. Pt plans on staying in room, "not because I 'm depressed but because I don't want to be around people!!!!!!!" Current Medications Sig/Darrell Start time Last Medication Dose Route Stop Time Status Admin Acetaminophen 650 MG Q6P PRN 09/09 1145 AC PO Albuterol Sulfate 2 PUF Q6P PRN 09/09 0045 AC INH Benztropine Mesylate 1 MG Q6P PRN 09/09 1145 AC PO Benztropine Mesylate 1 MG Q6P PRN 09/09 1145 AC IM Calcium Carbonate 500 MG Q6P PRN 09/09 1145 AC PO Chlorpromazine 50 MG Q6P PRN 09/09 2158 AC PO Docusate Sodium 100 MG DAILY NEEDED PRN 09/09 1145 DC PO Escitalopram Oxalate 10 MG AT BEDTIME 09/10 2100 AC PO Escitalopram Oxalate 10 MG QPM 09/09 2100 DC PO Escitalopram Oxalate 20 MG AT BEDTIME 09/09 2100 DC 09/09 PO 2135 Escitalopram Oxalate 20 MG DAILY 09/09 1437 DC PO Gabapentin 300 MG Q6P PRN 09/09 1145 AC 09/09 PO 2135 Haloperidol 5 MG Q6P PRN 09/09 1145 AC PO Haloperidol 5 MG Q6P PRN 09/09 1145 AC IM Hydroxyzine HCl 50 MG Q6P PRN 09/10 1045 AC PO Lorazepam 1 MG ONCE ONE 09/09 1445 DC PO 09/09 1446 Lorazepam 1 MG Q4P PRN 09/09 1445 AC 09/09 PO 2157 Lorazepam 2 MG AT BEDTIME NEED.. 09/09 1445 DC PO Lorazepam 0 .STK-MED ONE 09/09 1357 DC PO Lorazepam 2 MG Q6P PRN 09/09 1145 AC IM Lorazepam 0.5 MG DAILY PRN 09/09 1145 DC PO 09/16 1144 Senna 187 MG AT BEDTIME PRN 09/09 1445 AC PO Trazodone HCl 50 MG AT BEDTIME NEED.. 09/09 1145 DC PO Laboratory Tests 09/09 09/09 1117 0013 Toxicology Urine Opiates Screen (>2000 NG/ML) < 100 < 100 Methadone Screen (>300 NG/ML) 46 47 Barbiturate Screen (>200 NG/ML) < 60 < 60 Ur Phencyclidine Scrn (>25 NG/ML) < 6.00 < 6.00 Amphetamines Screen (>1000 NG/ML) < 100 < 100 U Benzodiazepines Scrn (>200 NG/ML) < 85 < 85 Urine Cocaine Screen (>300 NG/ML) < 50 < 50 Urine Cannabis Screen (>50 NG/ML) < 5.00 < 5.00 Urines Urine Test NEGATIVE 09/09 0010 Chemistry Sodium (137 - 145 mmol/L) 141 Potassium (3.5 - 5.1 mmol/L) 3.8 Chloride (98 - 107 mmol/L) 104 Carbon Dioxide (22 - 30 mmol/L) 27 Anion Gap (5 - 16) 10 BUN (7 - 17 mg/dL) 11 Creatinine (0.5 - 1.0 mg/dL) 0.7 Estimated GFR (>60 ml/min) > 60 BUN/Creatinine Ratio (7 - 25 %) 15.7 Glucose (65 - 99 mg/dL) 103 H Calcium (8.4 - 10.2 mg/dL) 9.5 Total Bilirubin (0.2 - 1.3 mg/dL) 0.8 AST (14 - 36 U/L) 28 ALT (9 - 52 U/L) 25 Alkaline Phosphatase (<127 U/L) 49 Total Protein (6.3 - 8.2 g/dL) 7.3 Albumin (3.5 - 5.0 g/dL) 4.1 Globulin (1.9 - 4.2 gm/dL) 3.2 Albumin/Globulin Ratio (1.1 - 2.2 %) 1.3 TSH &T3 &Free T4 Intrp (0.270 - 4.20 uIU/mL) 2.530 Hematology CBC w Diff NO MAN DIFF REQ WBC (4.8 - 10.8 /CUMM) 6.4 RBC (4.20 - 5.40 /CUMM) 4.40 Hgb (12.0 - 16.0 G/DL) 13.2 Hct (37 - 47 %) 38.5 MCV (81.0 - 99.0 FL) 87.5 MCH (27.0 - 31.0 PG) 30.0 MCHC (33.0 - 37.0 G/DL) 34.3 RDW (11.5 - 14.5 %) 13.1 Plt Count (130 - 400 /CUMM) 262 MPV (7.4 - 10.4 FL) 8.7 Gran % (42.2 - 75.2 %) 61.4 Lymphocytes % (20.5 - 51.1 %) 27.7 Monocytes % (1.7 - 9.3 %) 7.9 Eosinophils % (0 - 5 %) 2.5 Basophils % (0.0 - 2.0 %) 0.5 Absolute Granulocytes (1.4 - 6.5 /CUMM) 3.9 Absolute Lymphocytes (1.2 - 3.4 /CUMM) 1.8 Absolute Monocytes (0.10 - 0.60 /CUMM) 0.5 Absolute Eosinophils (0.0 - 0.7 /CUMM) 0.2 Absolute Basophils (0.0 - 0.2 /CUMM) 0 Toxicology Serum Alcohol (<10 MG/DL) < 10.0 Vital Signs Date Time Temp Pulse Resp B/P B/P Pulse O2 O2 Flow FiO2 Mean Ox Delivery Rate 09/10 0649 97.2 100 117/60 09/09 1949 96.9 86 118/70 09/09 1459 98.2 84 105/55 08/ 1354 98.2 112 20 122/82 97 Room Air MSE Appearance: as stated age Speech : nl rate, rhythm, volume and prosody Behavior: cooperative Motor: no psychomotor retardation Mood : pissed Affect : angry, flat, non-labile,very irritable, appropriate, constricted Thought process: linear and goal directed Thought content : no delusions or paranoia Perceptions: denied AVHs, denied SI or HI Insight: poor Judgment: poor A/P: Pt with MDD and anxiety with reported hx of antisocial PD admitted for SI and attempted OD. - Pt takes lexapro 10mg at home, change to this dose - Added thorazine PRN given hx of behavioral distrubance
--- NOTE | 2017-09-10 14:54 | SOCIAL WORKER SOCIAL HX PSYCH ---
Social History Basic Assessment Insurance Authorization: Insurance #1: Insurance name: STUART Melara Telerivet [facility] Phone number: Policy number: [id number] Group number: Authorization number: Curr Source of Income/Entitlements: None- The patient states that she is applying for Disability. Primary Care Physician: Patient's PCP: Keturah Busby MD PCP's Present Problem: The patient presents with a depressed, irritable mood and flat affect. She states that she got into an argument with a suicide hotline worker and she threatened to kill herself. She states that she made the statement because "he was bad at his job and challenged her." She denies any current suicidal ideations. She does report being very angry and anxious, rating them both a 10 ot of 10, 10 being the most severe. She states " I want to hurt people," and that she does not feel safe while on the unit. She states that "she does not do well, when she is locked in a facility with tons of people and is not able to decompress, in the usual way she decompresses." RN Gabby and RESEARCH AND DEVELOPMENT MANAGER were made aware of the patients current thoughts to harm others.She denies any current or history of AH or VH. She denies any current of history of drug or alcohol abuse. She states that she would like to be discharged and would like to return to Care. Primary Language? Puerto Rican Language(s) Spoken At Home: [place]ican Living Situation Other Living Arrangement: She states she lives in a house with her boyfriend and a roommate Residential Care/Treatment Fac N/A Feel Safe Where You Are Living Yes Feel Safe in Relationships? Yes Comments: N/A Allergies - Coded Allergies: magnesium (Mild, NAUSEA 03/27/17) Current Medications - Scheduled Medications Azithromycin (Zithromax) 500 MG TABLET 1 TAB PO DAILY SINUSITIS #5 TAB Prescribed by James Bruner on 08/22/17 Escitalopram Oxalate (Lexapro) 10 MG TABLET 1 TAB PO QPM MENTAL HEALTH #30 ( Reported) Entered as Reported by Kendal Rojas on 08/13/17 1506 Fluticasone Propionate (Flonase Allergy Relief) 50 MCG/ACTUATION SPRAY.SUSP 2 SPRAY MIRIAN DAILY CONGESTION #1 BOT Prescribed by James Bruner on 08/22/17 Scheduled PRN Medications Albuterol Sulfate (Proair Hfa) 90 MCG HFA.AER.AD 2 PUF INH AD PRN ASTHMA #9 ( Reported) Entered as Reported by Kendal Rojas on 08/13/17 1506 Benzonatate (Tessalon Perle) 100 MG CAPSULE 1 CAP PO TID PRN COUGH #15 CAP Prescribed by James Bruner on 08/22/17 Cyclobenzaprine HCl 10 MG TABLET 1 TAB PO QPM PRN MUSCLE RELAXOR #5 TAB Prescribed by James Bruner on 08/22/17 Lidocaine (Lidoderm) 5 % ADH..PATCH 1 PAT TOP DAILY PRN pain #30 PAT Prescribed by Sugar Lynch on 03/27/17 Lorazepam 0.5 MG TABLET 1 TAB PO DAILY NEEDED PRN ANXIETY #10 (Reported) Entered as Reported by Kendal Rojas on 08/13/17 1506 Meloxicam (Mobic) 15 MG TABLET 1 TAB PO DAILY PRN PAIN #10 TAB Prescribed by James Bruner on 08/22/17 Miscellaneous Medications Levonorgestrel (Mirena) 20 MCG/24 HOUR (5 YEARS) IUD CONTROL (Reported) Entered as Reported by Kendal Rojas on 08/13/17 1507 Consequences of Psych Med Use: N/A Comments: N/A Past History Past Medical History Neurological: vertigo EENT: NONE Cardiovascular: NONE Respiratory: asthma Musculoskeletal: NONE Psychiatric: anxiety, depression Endocrine: NONE Blood Disorders: NONE Cancer(s): NONE BOTTLE TESTER/Reproductive: NONE Past Surgical History Surgical History: non-contributory /Family History Place/Country of Origin: [place] Childhood Family Constellation: She states she was raised by her parents and was an only child until she got older, as she has a 9 year old sibling Primary Childhood Caretakers: father, mother Family Life During Childhood: Mother and Father Explain: N/A Mother's Age (Current/): 50 ("50's") Relationship w/Mother: She states that she does not have a good relationship with her mother. Father's Age (Current/): 50 ("50's") Relationship w/Father: She states that she does not have a great relationsihp with her father, however states that it is better then her relationship with her mother. Any Sibling(s)? Yes Sibling's Gender(s)/Age(s): male Sibling 1: Relationship w/Sibling(s): She states that she has a 9 year old sibling, however does not know him very well. Relationship w/Friends: "Fine." Family Psych/Sub Abuse/Add Hx: Unknown Other Comments: N/A Abuse/Trauma History Trauma History/Current Trauma: unknown Abuse/Trauma Treatment: N/A Legal History Legal Guardian/Address/Phone: Self Current Legal Status: none Pending Court Dates: N/A Have you ever been arrested No Hx of Juvenile Legal Charges? No Hx of Adult Legal Charges? No Civil Proceedings: N/A Domestic Relations Court: N/A Child Protective Serv Involvmnt N/A Cargo Supervisor N/A Psychosocial History Primary Support System: significant other, friend Strengths/Capabilities: Active [facility] pt, currently in IOP Reaches out for help when needed Supportive boyfriend Weaknesses: She appears to be very angry with being admitted to the unit. Physical Limitations (Interventions): Pt has vertigo Last Physical: Unknown History of Seizures? No (Pt. denies) History of Blackouts? Yes Last Blackout: "Over a year ago." ADL Limitations: None noted [place]/Social/Peer Relations "Fine." Meaningful Activities: "Video Games." Childhood Judaism: no buddhist stated Current Nondenominational Affiliation: no buddhist stated Is Spirituality Important to You? "No." Cultural/Ethnic Issues: None noted Are There Developmental Issues? No Psychiatric Treatment History Psych Treatment Inpatient Treatment Yes Outpatient Treatment Yes Location of Treatment IP- I, OP- [facility] Reason for Treatment SI Depression Anxiety Dates of Treatment current @ [facility], IP- 02/2016 Precipitating Factors: She states that the triggering factor for this admission and her suicidal statements was an argument with the suicide hotline worker. Current Wool Fleece Grader: [facility] Treatment of Prior Episodes: [place] and [facility]. She also states that she has had multiple ED visits. Diagnosis: Unknown Psychodynamic Issues: She does not get along with her parents very well. Risk Factors: high anxiety/distress, history of suicide atmpts, SA/MH hospitalized, poor impulse control, limited support Substance Use/Abuse History Drug Use/Abuse:Min 12 mo hx Substance Used/Abused Benzodiazepines First Use 08/08/17 Last Used 09/08/17 How much used/taken pt was prescribed 0.5 mg daily, per consult. How often see above For how long 1 month Route of use po Have Had Periods of Sobriety? Yes Explain: The patient denies any history of drug or alcohol abuse. Relapse History? No Explain: N/A Have You Ever Attended AA? No Do You Attend AA Currently? No Do You Have a Sponsor? No Other Community Resources Used: None noted Symptoms of Use: N/A Substance Abuse Treatment Substance Abuse Treatment Inpatient Treatment No Outpatient Treatment No Location of Treatment N/A Reason for Treatment N/A Dates of Treatment N/A Response to Treatment N/A Comments: N/A Sexual History Sexual Concerns: None noted Education History Highest Level of Education: some college Highest Grade Completed: Completed High School Vocational Year Completed: N/A College Degree/Major: Unclear Other Degree(s): N/A Preferred Learning Style: experiential, Reading HX of Learning Difficulties: None reported Barriers to Learning: None reported Special Communication Needs: None reported Employment History Employment Working on Disability Not in Labor Force: N/A Vocation/Occupational Hx: N/A Attendance: N/A Comments: N/A History Have You Been in The ? No (Pt. denies) If Yes, Explain: N/A Type of Discharge: N/A Date of Discharge: N/A Current Mental Status Mental Status Orientation: Person, Place, Situation Affect: Anxious, Angry, Flat Speech: Normal, WNL Neuro-vegetative: Appetite Decreased, Energy Decreased, Helpless, Hypersomnia, Sleep Disturbance Appearance Appearance- Dress/Hygiene: She was sitting in a chair, in her own attire and appeared to be neat and not disheveled. Behaviors Thought Process: WNL Thought Content: WNL Memory: WNL Insight: Fair SI/HI Risk Assessment Past Suicidal Ideation/Attempts Yes Current Suicidal Ideation/Att No Past Homicidal Ideation/Att: No Current Homicidal Ideation/Attempts Yes Degree of Intent: Thoughts/No Intent, She admits to making suicidal statments, to the suicide hotline worker. She states that she is currently having thoughts to harm others and does not feel safe while on the unit. ANGELLA Pierre and ANGELLA GALDAMEZ made aware of her current thoughts to harm others. Danger To: Others Gravely Disabled: Poor Impulse Control Risk Factors: High Anxiety/Distress, SA/MH Hospitalization(s), Poor impulse control Lethality Ratin - Conclusion and Recommendations for treatment - and discharge planning Summary: Continue with group and individual therapy. Continue to work with the providers on medication evaluation. Work with the treatment team to transition back to care in the community. She would like to resume care with Care, when she is cleared for discharge.
[2017-09-10 19:53] VITALS: BP 122/72
[2017-09-11 07:44] VITALS: BP 108/67
--- NOTE | 2017-09-11 11:55 | CP SOUTH PROGRESS NOTE PSYCH ---
Psych (Inpt) Progress Note Progress Note Pt remains upset that she is on CPS. Feels no need for hospitalization. Denies SI or HI. Did have a visit from a friend yesterday. Current Medications Sig/Darrell Start time Last Medication Dose Route Stop Time Status Admin Acetaminophen 650 MG Q6P PRN 09/09 1145 AC PO Albuterol Sulfate 2 PUF Q6P PRN 09/09 0045 AC INH Benztropine Mesylate 1 MG Q6P PRN 09/09 1145 AC PO Benztropine Mesylate 1 MG Q6P PRN 09/09 1145 AC IM Calcium Carbonate 500 MG Q6P PRN 09/09 1145 AC PO Chlorpromazine 50 MG Q6P PRN 09/09 2158 AC PO Escitalopram Oxalate 10 MG AT BEDTIME 09/10 2100 AC 09/10 PO 2139 Gabapentin 300 MG Q6P PRN 09/09 1145 AC 09/09 PO 2135 Haloperidol 5 MG Q6P PRN 09/09 1145 AC PO Haloperidol 5 MG Q6P PRN 09/09 1145 AC IM Hydroxyzine HCl 50 MG Q6P PRN 09/10 1045 AC PO Lorazepam 1 MG Q4P PRN 09/09 1445 AC 09/10 PO 2140 Lorazepam 2 MG Q6P PRN 09/09 1145 AC IM Senna 187 MG AT BEDTIME PRN 09/09 1445 AC PO Laboratory Tests 09/09 09/09 1117 0013 Toxicology Urine Opiates Screen (>2000 NG/ML) < 100 < 100 Methadone Screen (>300 NG/ML) 46 47 Barbiturate Screen (>200 NG/ML) < 60 < 60 Ur Phencyclidine Scrn (>25 NG/ML) < 6.00 < 6.00 Amphetamines Screen (>1000 NG/ML) < 100 < 100 U Benzodiazepines Scrn (>200 NG/ML) < 85 < 85 Urine Cocaine Screen (>300 NG/ML) < 50 < 50 Urine Cannabis Screen (>50 NG/ML) < 5.00 < 5.00 Urines Urine Test NEGATIVE 09/09 001 Chemistry Sodium (137 - 145 mmol/L) 141 Potassium (3.5 - 5.1 mmol/L) 3.8 Chloride (98 - 107 mmol/L) 104 Carbon Dioxide (22 - 30 mmol/L) 27 Anion Gap (5 - 16) 10 BUN (7 - 17 mg/dL) 11 Creatinine (0.5 - 1.0 mg/dL) 0.7 Estimated GFR (>60 ml/min) > 60 BUN/Creatinine Ratio (7 - 25 %) 15.7 Glucose (65 - 99 mg/dL) 103 H Calcium (8.4 - 10.2 mg/dL) 9.5 Total Bilirubin (0.2 - 1.3 mg/dL) 0.8 AST (14 - 36 U/L) 28 ALT (9 - 52 U/L) 25 Alkaline Phosphatase (<127 U/L) 49 Total Protein (6.3 - 8.2 g/dL) 7.3 Albumin (3.5 - 5.0 g/dL) 4.1 Globulin (1.9 - 4.2 gm/dL) 3.2 Albumin/Globulin Ratio (1.1 - 2.2 %) 1.3 TSH &T3 &Free T4 Intrp (0.270 - 4.20 uIU/mL) 2.530 Hematology CBC w Diff NO MAN DIFF REQ WBC (4.8 - 10.8 /CUMM) 6.4 RBC (4.20 - 5.40 /CUMM) 4.40 Hgb (12.0 - 16.0 G/DL) 13.2 Hct (37 - 47 %) 38.5 MCV (81.0 - 99.0 FL) 87.5 MCH (27.0 - 31.0 PG) 30.0 MCHC (33.0 - 37.0 G/DL) 34.3 RDW (11.5 - 14.5 %) 13.1 Plt Count (130 - 400 /CUMM) 262 MPV (7.4 - 10.4 FL) 8.7 Gran % (42.2 - 75.2 %) 61.4 Lymphocytes % (20.5 - 51.1 %) 27.7 Monocytes % (1.7 - 9.3 %) 7.9 Eosinophils % (0 - 5 %) 2.5 Basophils % (0.0 - 2.0 %) 0.5 Absolute Granulocytes (1.4 - 6.5 /CUMM) 3.9 Absolute Lymphocytes (1.2 - 3.4 /CUMM) 1.8 Absolute Monocytes (0.10 - 0.60 /CUMM) 0.5 Absolute Eosinophils (0.0 - 0.7 /CUMM) 0.2 Absolute Basophils (0.0 - 0.2 /CUMM) 0 Toxicology Serum Alcohol (<10 MG/DL) < 10.0 Vital Signs Date Time Temp Pulse Resp B/P B/P Pulse O2 O2 Flow FiO2 Mean Ox Delivery Rate 09/12 743 97.7 96 108/67 09/10 1952 98.7 100 122/72 MSE Appearance: as stated age Speech : nl rate, rhythm, volume and prosody Behavior: cooperative Motor: no psychomotor retardation Mood : OK Affect : angry, flat, non-labile,very irritable, appropriate, constricted Thought process: linear and goal directed Thought content : no delusions or paranoia Perceptions: denied AVHs, denied SI or HI Insight: poor Judgment: poor A/P: Pt with MDD and anxiety with reported hx of antisocial PD admitted for SI and attempted OD with marked irritability but no behavioral distrubance. Continue medications
[2017-09-11 19:56] VITALS: BP 122/77
[2017-09-12 07:53] VITALS: BP 101/65
--- NOTE | 2017-09-12 08:21 | CP SOUTH PROGRESS NOTE PSYCH ---
Psych (Inpt) Progress Note Progress Note I reviewed Dr. Zuniga's notes for the weekend of September 10 and 2017. The pt.'s progress, inpatient treatment plan, and aftercare plans were discussed in the treatment planning meeting (team members: Milady Richard LCSW, RN, OTR/L, and Psychiatrist) Vital Signs: Date Time Temp Pulse B/P 09/12 0753 97.6 100 101/65 08 1956 96.3 89 122/77 MSE Well groomed and dressed, normal speech, no abnormal behaviors. Calm and cooperative. no psychomotor retardation or agitation. Mood : OK, denied feeling depressed, Affect constricted linear and goal directed, no delusions or paranoia, Perceptions: denied AVHs, denied SI or HI A/P: Holli is a 27-year-old single White female with a borderline personality disorder who was admitted for SI and taking 4 tablets of Ativan 0.5 mg Plan: D/C Home for follow up with [facility]'s IOP PO 2140 Lorazepam 2 MG Q6P PRN 09/09 1145 AC IM Senna 187 MG AT BEDTIME PRN 09/09 1445 AC PO Laboratory Tests 09/09 09/09 1117 0013 Toxicology Urine Opiates Screen (>2000 NG/ML) < 100 < 100 Methadone Screen (>300 NG/ML) 46 47 Barbiturate Screen (>200 NG/ML) < 60 < 60 Ur Phencyclidine Scrn (>25 NG/ML) < 6.00 < 6.00 Amphetamines Screen (>1000 NG/ML) < 100 < 100 U Benzodiazepines Scrn (>200 NG/ML) < 85 < 85 Urine Cocaine Screen (>300 NG/ML) < 50 < 50 Urine Cannabis Screen (>50 NG/ML) < 5.00 < 5.00 Urines Urine Test NEGATIVE 09/09 0010 Chemistry Sodium (137 - 145 mmol/L) 141 Potassium (3.5 - 5.1 mmol/L) 3.8 Chloride (98 - 107 mmol/L) 104 Carbon Dioxide (22 - 30 mmol/L) 27 Anion Gap (5 - 16) 10 BUN (7 - 17 mg/dL) 11 Creatinine (0.5 - 1.0 mg/dL) 0.7 Estimated GFR (>60 ml/min) > 60 BUN/Creatinine Ratio (7 - 25 %) 15.7 Glucose (65 - 99 mg/dL) 103 H Calcium (8.4 - 10.2 mg/dL) 9.5 Total Bilirubin (0.2 - 1.3 mg/dL) 0.8 AST (14 - 36 U/L) 28 ALT (9 - 52 U/L) 25 Alkaline Phosphatase (<127 U/L) 49 Total Protein (6.3 - 8.2 g/dL) 7.3 Albumin (3.5 - 5.0 g/dL) 4.1 Globulin (1.9 - 4.2 gm/dL) 3.2 Albumin/Globulin Ratio (1.1 - 2.2 %) 1.3 TSH &T3 &Free T4 Intrp (0.270 - 4.20 uIU/mL) 2.530 Hematology CBC w Diff NO MAN DIFF REQ WBC (4.8 - 10.8 /CUMM) 6.4 RBC (4.20 - 5.40 /CUMM) 4.40 Hgb (12.0 - 16.0 G/DL) 13.2 Hct (37 - 47 %) 38.5 MCV (81.0 - 99.0 FL) 87.5 MCH (27.0 - 31.0 PG) 30.0 MCHC (33.0 - 37.0 G/DL) 34.3 RDW (11.5 - 14.5 %) 13.1 Plt Count (130 - 400 /CUMM) 262 MPV (7.4 - 10.4 FL) 8.7 Gran % (42.2 - 75.2 %) 61.4 Lymphocytes % (20.5 - 51.1 %) 27.7 Monocytes % (1.7 - 9.3 %) 7.9 Eosinophils % (0 - 5 %) 2.5 Basophils % (0.0 - 2.0 %) 0.5 Absolute Granulocytes (1.4 - 6.5 /CUMM) 3.9 Absolute Lymphocytes (1.2 - 3.4 /CUMM) 1.8 Absolute Monocytes (0.10 - 0.60 /CUMM) 0.5 Absolute Eosinophils (0.0 - 0.7 /CUMM) 0.2 Absolute Basophils (0.0 - 0.2 /CUMM) 0 Toxicology Serum Alcohol (<10 MG/DL) < 10.0 Vital Signs Date Time Temp Pulse Resp B/P B/P Pulse O2 O2 Flow FiO2 Mean Ox Delivery Rate 09/12 743 97.7 96 108/67 09/10 1952 98.7 100 122/72 MSE Appearance: as stated age Speech : nl rate, rhythm, volume and prosody Behavior: cooperative Motor: no psychomotor retardation Mood : OK Affect : angry, flat, non-labile,very irritable, appropriate, constricted Thought process: linear and goal directed Thought content : no delusions or paranoia Perceptions: denied AVHs, denied SI or HI Insight: poor Judgment: poor A/P: Pt with MDD and anxiety with reported hx of antisocial PD admitted for SI and attempted OD with marked irritability but no behavioral distrubance. Continue medications
--- NOTE | 2017-09-12 12:09 | Patient Discharge Instructions ---
Psych Discharge Inst General Discharge Information Reason for Admission: told Crisis Hostline she took an overdose, turned out to be just 4 tablets of 0.5 mg Ativan Psy Discharge Primary Diag+ Unspecified Depresive DO Psy Discharge Secondary Diag+ Other Specified Personality Disorder Summary Tests/Major Procedures Lab Amphetamines Screen < 100 NG/ML 09/09/17 1117 Barbiturate Screen < 60 NG/ML 09/09/17 1117 Methadone Screen 46 NG/ML 09/09/17 1117 U Benzodiazepines Scrn < 85 NG/ML 09/09/17 1117 Ur Phencyclidine Scrn < 6.00 NG/ML 09/09/17 1117 Urine Cannabis Screen < 5.00 NG/ML 09/09/17 1117 Urine Cocaine Screen < 50 NG/ML 09/09/17 1117 Urine Opiates Screen < 100 NG/ML 09/09/17 1117 Studies Pending at DC: None Patient Instructions Contact Information Your Psychiatrist on [facility] was Jasiel Jacobs MD * If you are experiencing an emergency related to this hospitalization, please call [phone] to contact the treating psychiatrist or the psychiatrist-on- call. * To Request a copy of your medical records, please contact the Medical Records Department at [phone]. * To request results of studies pending at the time of discharge, please call [phone]. * Continue your Medications until directed to stop by your Healthcare provider. General Medication Information Please continue to take your new medications and your continued home medications , unless otherwise indicated on your discharge medication list, or unless directed by your MD or TANK FURNACE OPERATOR to stop them. Special Instructions Diet Regular Activity Normal - Tobacco Use Treatment Offered Post DC Medications Offered: Not Applicable Post DC Tobacco Treatment Plan: Not Applicable - EtOH/Drug Use D/O Treatment Offered Post DC Medications Offered: NA-No EtOH/Drug Use D/O Post DC EtOH/SubAbuse [place] Plan: NA-No EtOH/Drug Use D/O Metabolic Screening Not Applicable, patient not on a neuroleptic. Advance Directives Does the Patient have Medical Advance Directives No/Refused further info Does Pt have Psychiatric Advance Directives? No/Refused further info Does Patient have a Designated Surrogate Decision Maker: No Information About Psychiatric Advance Directives Provided? Refused Discharge Plan Post Hospital Treatment Plan: [facility] IOP
--- NOTE | 2017-09-12 12:20 | DISCHARGE SUMMARY REPORT-PSYCH ---
Visit Information Visit Dates/Diagnosis' Admission Date: 09/09/17 Discharge Date: 09/12/17 Reason for Admission: told Crisis Hostline she took an overdose, turned out to be just 4 tablets of 0.5 mg Ativan Psy Discharge Primary Diag: Unspecified Depresive DO Psy Discharge Secondary Diag: Other Specified Personality Disorder Hospital Course Significant Lab Findings: Lab Amphetamines Screen < 100 NG/ML 09/09/17 1117 Barbiturate Screen < 60 NG/ML 09/09/17 1117 Methadone Screen 46 NG/ML 09/09/17 1117 Serum Alcohol < 10.0 MG/DL 09/09/17 0010 U Benzodiazepines Scrn < 85 NG/ML 09/09/17 1117 Ur Phencyclidine Scrn < 6.00 NG/ML 09/09/17 1117 Urine Cannabis Screen < 5.00 NG/ML 09/09/17 1117 Urine Cocaine Screen < 50 NG/ML 09/09/17 1117 Urine Opiates Screen < 100 NG/ML 09/09/17 1117 Course Complications: Have any complications while she was in the inpatient psychiatric unit Consultations: The patient had a history and physical examination by the dictaphone operator. Please refer to the patient's electronic health record for the details of the H&P. Allergies: Coded Allergies: magnesium (Mild, NAUSEA 03/27/17) Hospital Course/TX Response: 09/09/2017: Dr. Jacobs's Initial Impression and Plan: 27-year-old single white female admitted on a PEC after she was brought to the emergency room on a police emergency examination request. The police were called after the patient reportedly texted the crisis hotline/suicide hotline stating that she took all her Ativan (it turned out that it was only 4 tablets of Ativan). The patient is very distraught about being admitted does not feel that is going to be helpful and that is going to make her worse. The patient reported that she had no intention of killing herself when she took Ativan and just wanted to calm down. She is currently denying thoughts of suicide but did seem that she is bargaining to be released. Diagnosis(es): Unspecified depressive disorder Rule out disruptive mood dysregulation disorder Unspecified anxiety Disorder (most likely a combination of social anxiety and generalized anxiety Cluster B traits Initial Treatment Plan: Inpatient psychiatric care with safety checks every 15 minutes Nursing assessments, vital signs, and patient education and Group therapy, milieu therapy, and activities therapy Collateral information, biopsychosocial assessment by social work and aftercare planning in Increase Lexapro to 20 mg mg daily PRN's of Ativan for anxiety at 1 mg and for insomnia at 2 mg 09/10/2017: Dr. Zuniga's A/P: Pt with MDD and anxiety with reported hx of antisocial PD admitted for SI and attempted OD. - Pt takes lexapro 10mg at home, change to this dose - Added thorazine PRN given hx of behavioral distrubance. 09/11/2017: Dr. Zuniga's A/P: A/P: marked irritability but no behavioral distrubance. Continue medications 09/12/2017: Dr. Arlene MD:Well groomed and dressed, normal speech, no abnormal behaviors. Calm and cooperative. no psychomotor retardation or agitation. Mood : linear and goal directed, no delusions or paranoia, Perceptions: denied AVHs, denied SI or HI A/P: Holli is a 27-year-old single White female with a borderline personality disorder who was admitted for SI and taking 4 tablets of Ativan 0.5 mg Plan: D/C Home for follow up with [facility]'s IOP Discharge HBIPS - Tobacco Use Treatment Offered Post DC Medications Offered: Not Applicable Post DC Tobacco Treatment Plan: Not Applicable - EtOH/Drug Use D/O Treatment Offered Post DC Medications Offered: NA-No EtOH/Drug Use D/O Post DC EtOH/SubAbuse TX Plan: NA-No EtOH/Drug Use D/O Metabolic Screening - Screen if on a Neuroleptic Medication - Metabolic screening should include: - Blood Pressure, BMI, Glucose or Hgb A1c, & a - Lipid profile from within the past 365 days. Metabolic Screening Not Applicable, patient not on a neuroleptic. Discharge Instructions General Discharge Information Multiple Neuroleptics: Not Applicable Discharge Diet Regular Discharge Activity Normal DC Disposition: Home Referrals Ordered Referrals [facility], Located Within [facility] 09/13/17 [address] [place], [place] [id number] [address] [phone] Gill: 09/13/17, at 11:30am [facility] 09/15/17 [address] [place] [address] [facility] [address] [place], [place] [phone] Patient will begin IOP on , 09/15/17, at 10am (IOP meets on Tue, Tue and from 10-1:30am) Prescriptions Stop taking the following medications: Lorazepam (Lorazepam) 0.5 MG TABLET ORAL DAILY NEEDED as needed for ANXIETY Qty = 10 Fluticasone Propionate (Flonase Allergy Relief) 50 MCG/ACTUATION SPRAY.SUSP In the nose DAILY Qty = 1 Meloxicam (Mobic) 15 MG TABLET ORAL DAILY as needed for PAIN Qty = 10 Benzonatate (Tessalon Perle) 100 MG CAPSULE ORAL THREE TIMES DAILY as needed for COUGH Qty = 15 Azithromycin (Zithromax) 500 MG TABLET ORAL DAILY Qty = 5 Cyclobenzaprine HCl (Cyclobenzaprine HCl) 10 MG TABLET ORAL Every night as needed for MUSCLE RELAXOR Qty = 5 Continue taking these medications: Escitalopram Oxalate (Lexapro) 10 MG TABLET 1 Tablet ORAL Every night Qty = 30 Comments: Last Taken:09/11/17 Time:10:30PM Albuterol Sulfate (Proair Hfa) 90 MCG HFA.AER.AD 2 Puff Inhale through mouth As Directed as needed for ASTHMA Qty = 9 Comments: Last Taken:NOT USED IN THE HOSPITAL Time: Studies Pending at Discharge None Copies To: [facility]
--- NOTE | 2017-09-12 15:05 | SOCIAL WORKER PROG NOTE PSYCH ---
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 She discussed events/symptoms leading to current inpatient admission. She described multiple panic attacks that were triggered by her roommate utilizing police/emergency services unrelated to the patient and having a negative conversation with a crisis hotline worker. Patient stated that she lives with her boyfriend and roommate and has positive relationships with both. She stated that she also has multiple pets, including a service dog for her anxiety. Patient stated that she was working until recently when she left her job (09/07/17) due to her panic attacks. She stated that she is working with [facility] to obtain disability. Patient is eager to discharge today and return home and to [facility] for outpatient therapy. She denied SI/HI/AH/VH. She stated that she has antisocial personality disorder resulting in feeling triggered when around others. She identified being [place] as [place]. Patient stated that she can be verbally aggressive, but has never been physically aggressive. She denied any past/current substance abuse and denied any past/current suicide attempts. Patient refused to have a family meeting prior to discharge. We called her librarian special library, Macrina Dewitt, to discuss treatment. Macrina stated that the patient is scheduled to meet with Dr. Watson tomorrow, 09/13/17, at 11:30am for medication evaluation and begin the symptom management IOP on 09/15/17 at 10am. Macrina shared that they had transferred her from the DBT IOP to symptoms management IOP and that they were also considering adding individual therapy outside of [facility]. Patient was in agreement with this plan. Macrina inquired about in home therapy, however, patient stated that she would not be comfortable with a provider coming to her home. Macrina was offered some in home providers , however, declined the offer. Patient was agreeable to continue looking for individual therapists with Macrina. Faxed Referral(s) Referred To: [facility] Transition of Care Documents sent: Health Summary Faxed to: [facility] Fax #: [phone] Faxed by: Elke Richard LCSW Date faxed: 09/12/17 Time Faxed: [phone]
== END 2017-09-12 14:56 | DRG 754 ==
LOC: ERH 23:07 → ERHI 09-09 11:32 → CP SOUTH 09-09 11:32 → ENTRNSPT 09-09 13:51 → EDTRNSPT 09-09 14:20 → EDTRNSPTSTS 09-09 14:20 → CP SOUTH 09-09 14:22 → CMPTRNSPT 09-09 14:54 → CP SOUTH 09-09 18:09
PROVIDERS: Emergency Medicine
DX: F32.9 Major depressive disorder, single episode, unspecified (principal)
CPT/HCPCS: 80307; 81025; G0463; G0480; J0515; J1630; J3490